=== PATIENT | male | born 1965 | race Caucasian/White ===

== ENCOUNTER 2024-05-06 10:27 | Day surgery (SDC) | payer BC ==
[2024-05-05 11:06] VITALS: BMI 30.5
[2024-05-06] MEDS ORDERED: Lidocaine 2% PF 5 ML VIAL ONE (12:06)
[2024-05-06] MEDS ORDERED: Dexamethasone 4 mg/ml Vial ONE (12:06)
[2024-05-06] MEDS ORDERED: Ondansetron PF 4 MG/2 ML Vial ONE (12:06)
[2024-05-06] MEDS ORDERED: PROPOFOL 0 ML ONE (12:06)
[2024-05-06] MEDS ORDERED: fentaNYL 50 mcg/mL 1 mL Vial ONE (12:35)
[2024-05-06] MEDS ORDERED: Lidocaine 1% (PF) 30 ML VIAL ONE (12:39)
[2024-05-06] MEDS ORDERED: Lidocaine 2% 6 ML (Jelly) SYR ONE (12:40)
[2024-05-06] MEDS ORDERED: Bupivacaine/Epinephrine 0.25% 30 ML VIAL ONE (12:40)
[2024-05-06] MEDS ORDERED: ceFOXitin 1 GM VIAL ONE (12:50)
[2024-05-06] MEDS ORDERED: PROPOFOL 20 ML ONE (13:02)
[2024-05-06] MEDS ORDERED: Ketorolac Tromethamine 30 MG (1 mL) VIAL ONE (13:28)
[2024-05-06] MEDS ORDERED: ePHEDrine Sulfate 50 MG/10 ML VIAL ONE (13:47)
== END 2024-05-06 15:40 | disposition home or self-care (01) ==
LOC: CSHSDC 10:27
PROVIDERS: ATTEND Surgery
PROC: 06BY0ZC Excision of Hemorrhoidal Plexus, Open Approach (ICD-10-PCS; principal; 2024-05-06)
DX: K64.3 Fourth degree hemorrhoids (principal); N40.1 Benign prostatic hyperplasia with lower urinary tract symptoms; I10 Essential (primary) hypertension; Z79.899 Other long term (current) drug therapy
CPT/HCPCS: 88304; 93005; 93010; J0694; J1100; J1885; J2405; J2704; J3010